=== PATIENT | female | born 1975 | race Caucasian/White ===

== ENCOUNTER → 2021-11-13 08:38 | Outpatient (CLI) | payer OTHER, SELFPAY ==
[2021-11-13 18:21] LABS: Basophils # 0.2 K/mm3 (0-0.2); Basophils % 2.6 % (0.1-2.0); Eosinophils # 0.2 K/mm3 (0.0-0.4); Eosinophils % 2.8 % (0.1-12.0); Hematocrit 49.3 % (37.0-47.0); Hemoglobin 15.9 g/dL (12.2-16.2); Lymphocytes # 2.4 K/mm3 (0.7-4.5); Lymphocytes % 31.3 % (10-50); Mean Corpuscular HGB Conc 32.3 g/dL (31.8-35.4); Mean Corpuscular Hemoglobin 31.5 pg (27.0-31.2); Mean Corpuscular Volume 97.5 fl (81-99); Mean Platelet Volume 10.8 fl (7.4-10.4); Monocytes # 0.4 K/mm3 (0.1-1.0); Monocytes % 4.5 % (1.7-9.3); Neutrophils # 4.5 K/mm3 (1.8-7.8); Neutrophils % 58.9 % (37.0-80.0); Platelet Count 353 K/mm3 (142-424); Red Blood Count 5.05 M/mm3 (4.20-5.40); Red Cell Distribution Width 13.8 % (11.5-17.5); White Blood Count 7.7 K/mm3 (4.8-10.8)
[2021-11-13 18:29] LABS: Alanine Aminotransferase 36 U/L (12-78); Albumin Level 4.6 g/dl (3.5-5.0); Albumin/Globulin Ratio 1.6 (1.1-1.8); Alkaline Phosphatase 94 U/L (38-126); Anion Gap 13.2 mEq/L (5-15); Aspartate Amino Transferase 31 U/L (14-36); Bilirubin,Total 0.7 mg/dl (0.2-1.3); Blood Urea Nitrogen 14 mg/dl (7-17); Calcium 10.1 mg/dl (8.4-10.2); Carbon Dioxide 23 mmol/L (22.0-30.0); Chloride 107 mmol/L (98-107); Cholesterol 185 mg/dl (140-200); Estimated Glomerular Filt Rate 133 ml/min (>60); GFR (African American) 161 ML/MIN (>60); Globulin 2.9 g/dL (1.3-3.2); Glucose 108 mg/dl (74-100); HDL Cholesterol 61 mg/dl (40-60); Potassium 4.2 mmoL/L (3.5-5.1); Sodium 139 mmol/L (136-145); Total Protein,Serum 7.5 g/dl (6.3-8.2); Triglycerides 100 mg/dl (30-150); VLDL Cholesterol 20 mg/dL (0-40)
[2021-11-13 18:40] LABS: Direct LDL Cholesterol 84.92 mg/dL (100-129)
[2021-11-13 18:46] LABS: 25-OH Vitamin D, Total 29.6 ng/mL (30-100)
[2021-11-13 19:00] LABS: Thyroid Stimulating Hormone 1.66 uIU/mL (0.465-4.68)
== END ==
PROVIDERS: Visit Provider Nurse Practitioner Family
DX: R10.9 Unspecified abdominal pain (principal); R53.83 Other fatigue; E55.9 Vitamin D deficiency, unspecified
CPT/HCPCS: 80053; 80061; 82306; 84436; 84443; 85025

== ENCOUNTER → 2021-11-17 06:47 | Outpatient (CLI) | payer OTHER, SELFPAY ==
--- NOTE | 2021-11-17 06:48 | CT_ITS ---
FINAL REPORT CLINICAL HISTORY: Lipoma, right side abd pain FINDINGS: CT ABDOMEN & PELVIS W/O CONTRAST Axial CT images of the abdomen and pelvis were obtained without intravenous contrast. Coronal reformatted images were also obtained.This study was performed with techniques to keep radiation doses as low as reasonably achievable (ALARA). Individualized dose reduction techniques using automated exposure control or adjustment of mA and/or kV according to the patient's size were employed. Abdomen: The lung bases are clear. There is no evidence of renal stone or hydronephrosis. The gallbladder is present. The liver, spleen and pancreas have an unremarkable, unenhanced appearance. No inflammatory process is identified. There is an 11 mm nodule in the right abdomen subcutaneous tissue which is nonspecific. Pelvis: Images of the pelvis reveal no evidence of ureteral dilation or ureteral stone. The appendix is unremarkable. No mass or abnormal fluid collection is identified. The uterus has a lobular contour which is consistent with fibroids. IMPRESSION: No renal or ureteral stone, or hydronephrosis. 11 mm nodule in the right abdomen subcutaneous tissue, nonspecific. Fibroid uterus. Reviewed, Interpreted and Dictated by Terry Fischer III, MD Transcribed by Ksenia Hall Authenticated by Terry Fischer III, MD on 11/17/2021 08:57:54 AM [facility]
== END ==
LOC: RAD 06:48
PROVIDERS: PCP Emergency Medicine; Visit Provider Nurse Practitioner Family
DX: R10.9 Unspecified abdominal pain (principal)
CPT/HCPCS: 74176

== ENCOUNTER → 2021-12-12 16:25 | Outpatient (CLI) | payer OTHER, SELFPAY ==
[2021-12-12 17:03] LABS: MANUAL DIFFERENTIAL MANUAL DIFFERENTIAL (MANUAL DIFF)
[2021-12-12 17:20] LABS: Chloride 106 mmol/L (98-107); Potassium 3.9 mmoL/L (3.5-5.1); Sodium 135 mmol/L (136-145)
[2021-12-12 17:23] LABS: Anion Gap 7.9 mEq/L (5-15); Blood Urea Nitrogen 12 mg/dl (7-17); Calcium 9.2 mg/dl (8.4-10.2); Carbon Dioxide 25 mmol/L (22.0-30.0); Estimated Glomerular Filt Rate 108 ml/min (>60); GFR (African American) 130 ML/MIN (>60); Glucose 102 mg/dl (74-100)
[2021-12-12 17:29] LABS: Basophils # 0.2 K/mm3 (0-0.2); Basophils % 1.8 % (0.1-2.0); Eosinophils # 0.3 K/mm3 (0.0-0.4); Eosinophils % 2.1 % (0.1-12.0); Hematocrit 42.5 % (37.0-47.0); Hemoglobin 14.3 g/dL (12.2-16.2); Lymphocytes % 22.1 % (10-50); Mean Corpuscular HGB Conc 33.6 g/dL (31.8-35.4); Mean Corpuscular Hemoglobin 31.6 pg (27.0-31.2); Mean Platelet Volume 9.3 fl (7.4-10.4); Monocytes # 0.7 K/mm3 (0.1-1.0); Monocytes % 5.3 % (1.7-9.3); Neutrophils # 9.5 K/mm3 (1.8-7.8); Neutrophils % 68.8 % (37.0-80.0); Platelet Count 288 K/mm3 (142-424); Red Blood Count 4.52 M/mm3 (4.20-5.40); Red Cell Distribution Width 14.2 % (11.5-17.5); White Blood Count 13.8 K/mm3 (4.8-10.8)
[2021-12-12 18:22] LABS: Eosinophils % 1 % (0-3); Lymphocytes % 25 % (10-50); Monocytes % 3 % (2-9); Neutrophils % 70 % (42-76); Platelet Estimate Normal; RBC Morphology Normal; Total Cells Counted 100
== END ==
PROVIDERS: PCP Emergency Medicine; Visit Provider Surgery
DX: Z01.812 Encounter for preprocedural laboratory examination (principal); Z11.52 Encounter for screening for COVID-19; R10.9 Unspecified abdominal pain; D17.9 Benign lipomatous neoplasm, unspecified
CPT/HCPCS: 36415; 80048; 85007; 85014; 85018; 85048; 85049; C9803; U0003; U0005

== ENCOUNTER 2021-12-14 06:06 | Day surgery (SDC) | payer OTHER, SELFPAY ==
[2021-12-10 14:49] VITALS: BMI 32.5
[2021-12-14] VITALS (10 sets, daily range): BP systolic 112–145; BP diastolic 66–95; PULSE 58–74; RESP 12–18; TEMP 36.3–38; O2SAT 94–98
--- NOTE | 2021-12-14 06:50 | P.PN_ITS ---
[facility] Anesthesia Checklist - Structural Data Admitted From: Home Planned Operative Procedure/s: abd neoplasm Consent for Planned Operative Procedure(s) Verified: Yes - Additional verifications Anesthesia Reactions: No Hx Blood Transfusions: No Blood Transfusion Reaction: No - Airway Assessment C-Spine Mobility Assessed: Yes TMJ Mobility Assessed: Yes Dentition: Good Dentition - Neurological Assessment Level of Consciousness: Awake, Alert, Appropriate - Anesthesia Plan Anesthesia Risk discussed: Yes Anesthesia Plan: Verified ASA Class: II Anesthesia Type: General [facility] History I have reviewed the patient's past medical history: Yes Medical History: Reports:: Gastroesophageal Reflux Disease(GERD) Denies:: Cancer, Diabetes Mellitus Type 1, Diabetes Mellitus Type 2, Internal Pacemaker, MRSA, Seizures *Have you ever received a pneumonia vaccine?: No *Have you received a flu vaccine this season?: No Other Medical History: Denies: Blood Transfusion Reaction Anesthesia experience/problems:: none Laterality Cases: Right: Breast Biopsy Other Surgeries: Yes: Hernia Repair. No: Pacemaker Amputation: No Fractures: No - *Social History Last grade of school completed: High school graduate Smoking Status: Current every day smoker Tobacco Type: cigarettes # Packs/Day (cigarettes): 1 Alcohol Intake: current Alcohol Intake Frequency:: 0-2 drinks per day Substance Use Type: marijuana *Occupational Status:: employed Housing: house Household Members: family *Travel in the last 8 weeks: None Family Hx:: Hypertension, Heart Attack, Stroke, Cancer
[2021-12-14 06:53] LABS: Urine Pregnancy, HCG Qual. Negative (Negative)
--- NOTE | 2021-12-14 08:18 | HMH.OPNOTE ---
Date of procedure: 12/14/21 Pre-op Diagnosis:: Multiple abdominal wall lipomas Post-op Diagnosis:: Same Procedure performed:: Excision of multiple abdominal wall lipomas (excisional length 5.0 cm, 4.0 cm, 3.5 cm) with intermediate complexity closure Surgeon:: Terry Valdivia MD SUPERVISOR COLOR PASTE MIXING:: Gonzalo Aj Anesthesia: LMA Estimated blood loss (mL): 5 Clinical Note:: Patient is a 46-year-old female from [facility] referred by Dr. Schroeder for symptomatic lipomas on her right abdomen. SHe states she has multiple lipomas all over her body. She did have lipomas removed in [place] several years ago. Recently she has had some increasing pain in the right lower abdomen and has several palpable lesions consistent with lipomas. She underwent CT scan on 11/17/2021. This reveals 11 mm subcutaneous nodule in the right abdomen . Patient wishes to have the lipomas causing her symptomatology removed. She describes a lot of pain . She wonders about limited incisions inquiring about the possibility of removing several lipomas through a single incision. She states that these have been present for a long time . Operative findings:: Consistent with subcutaneous lipomas Operative note:: Patient was taken to the operating room. She was given preoperative intravenous antibiotics. In the operating room she was placed in a supine position. General anesthesia was induced via LMA. Abdomen was prepped and draped in the standard surgical fashion. Lesions were marked for location in the preoperative area with the patient awake. These were palpable. Incision was made overlying the lipoma was. Dissection was carried down through subcutaneous tissues. Combination of blunt dissection and Metzenbaum dissection with some use of electrocautery lipomas were excised. Upper lipoma incision was approximately 3.5 cm. Mid lipoma incision was approximately 4.0 cm. 2 lipomas were excised from lower incision which was approximately 5.0 cm. Incisions were irrigated. Hemostasis was achieved with electrocautery. Local anesthetic was infiltrated. Deep dermal tissues were reapproximated with interrupted 3-0 Vicryl. Skin was closed with 4-0 Monocryl in a subcuticular fashion. Dermabond and Steri-Strips were applied. Condition: stable Disposition: PACU Specimens:: Upper, mid, and lower (x2) lipoma Complications:: None immediately apparent
--- NOTE | 2021-12-14 08:21 | HMH.ANESI ---
[facility] Anesthesia Record Part I Intake, IV Amount: 1,000 Estimated blood loss (mL): 0 Urine output (mL): 0 Blood Pressure: 138/88 SaO2: 96 Pulse Rate: 70 Respiratory Rate: 12 Temperature: 98.6 F Patient is:: Awake, Stable Stable to PACU at:: 08:20
--- NOTE | 2021-12-14 19:02 | HMH.ANESII ---
[facility] Anesthesia Record Part II Discharge Time: 08:40 Destination: Surgical Day Care (OP Surgery) PACU nurse assessment reviewed?: Yes Patient Condition:: Good Anesthesia Complications:: None Swallowing reflex intact?: Yes Cyanosis?: No Blood Pressure: 125/82 Pulse Rate: 60 Temperature: 97.5 F Mental Status: Alert & Oriented Pain level:: 4 Nausea and/or vomitting:: None Intake, IV Amount: 0
== END 2021-12-14 09:15 | disposition home or self-care (01) ==
LOC: OR 06:07
PROVIDERS: PCP Emergency Medicine; Visit Provider Surgery
PROC: (CPT 11406; principal; 2021-12-14 07:30)
DX: D17.79 Benign lipomatous neoplasm of other sites (principal); K21.9 Gastro-esophageal reflux disease without esophagitis; Z72.0 Tobacco use; F12.90 Cannabis use, unspecified, uncomplicated; Z82.49 Family history of ischemic heart disease and other diseases of the circulatory system; Z82.3 Family history of stroke; Z80.9 Family history of malignant neoplasm, unspecified
CPT/HCPCS: 11406; 12031; 11404; 81025; 96374; J2405

== ENCOUNTER → 2023-01-07 23:15 | Outpatient (CLI) | payer OTHER, SELFPAY ==
[2023-01-07 17:59] LABS: Basophils # 0.1 K/mm3 (0-0.2); Basophils % 0.7 % (0.1-2.0); Eosinophils # 0.3 K/mm3 (0.0-0.4); Eosinophils % 2.5 % (0.1-12.0); Hematocrit 46.3 % (37.0-47.0); Lymphocytes # 3.4 K/mm3 (0.7-4.5); Lymphocytes % 31.7 % (10-50); Mean Corpuscular HGB Conc 32.5 g/dL (31.8-35.4); Mean Corpuscular Hemoglobin 31.5 pg (27.0-31.2); Mean Corpuscular Volume 97.1 fl (81-99); Monocytes # 0.5 K/mm3 (0.1-1.0); Monocytes % 4.8 % (1.7-9.3); Neutrophils # 6.5 K/mm3 (1.8-7.8); Neutrophils % 60.3 % (37.0-80.0); Platelet Count 350 K/mm3 (142-424); Red Blood Count 4.77 M/mm3 (4.20-5.40); Red Cell Distribution Width 13.5 % (11.5-17.5); White Blood Count 10.7 K/mm3 (4.8-10.8)
[2023-01-07 18:07] LABS: Alanine Aminotransferase 32 U/L (12-78); Albumin Level 4.4 g/dl (3.5-5.0); Albumin/Globulin Ratio 1.6 (1.1-1.8); Alkaline Phosphatase 80 U/L (38-126); Anion Gap 16.2 mEq/L (5-15); Aspartate Amino Transferase 33 U/L (14-36); Bilirubin,Total 0.5 mg/dl (0.2-1.3); Blood Urea Nitrogen 16 mg/dl (7-17); Calcium 9.7 mg/dl (8.4-10.2); Carbon Dioxide 25 mmol/L (22.0-30.0); Chloride 102 mmol/L (98-107); Cholesterol 182 mg/dl (140-200); Estimated Glomerular Filt Rate 90 ml/min (>60); GFR (African American) 109 ML/MIN (>60); Globulin 2.7 g/dL (1.3-3.2); Glucose 147 mg/dl (74-100); HDL Cholesterol 60 mg/dl (40-60); Potassium 4.2 mmoL/L (3.5-5.1); Sodium 139 mmol/L (136-145); Total Protein,Serum 7.1 g/dl (6.3-8.2); Triglycerides 197 mg/dl (30-150); VLDL Cholesterol 39 mg/dL (0-40)
[2023-01-07 18:25] LABS: 25-OH Vitamin D, Total 34.1 ng/mL (30-100)
[2023-01-07 18:29] LABS: Direct LDL Cholesterol 81.28 mg/dL (100-129)
[2023-01-07 18:38] LABS: Thyroid Stimulating Hormone 1.19 uIU/mL (0.465-4.68)
== END ==
PROVIDERS: PCP Nurse Practitioner Family; Visit Provider Nurse Practitioner Family
DX: Z00.00 Encounter for general adult medical examination without abnormal findings (principal); R60.0 Localized edema; E66.9 Obesity, unspecified; Z68.36 Body mass index [BMI] 36.0-36.9, adult
CPT/HCPCS: 80053; 80061; 82306; 84443; 85025

== ENCOUNTER → 2023-01-18 08:28 | Outpatient (CLI) | payer OTHER, SELFPAY ==
--- NOTE | 2023-01-18 08:32 | XR_ITS ---
FINAL REPORT CLINICAL HISTORY: Foot pain FINDINGS: 3 views of the left foot were obtained. There is no acute fracture or dislocation. The joint spaces are intact. The soft tissues are unremarkable. IMPRESSION: No acute process. Reviewed, Interpreted and Dictated by Chong Lawrence MD Transcribed by Kendell Shell Authenticated and [facility]
--- NOTE | 2023-01-18 08:32 | XR_ITS ---
FINAL REPORT CLINICAL HISTORY: Foot pain FINDINGS: 3 views of the right foot were obtained. There is no acute fracture or dislocation. The joint spaces are intact. The soft tissues are unremarkable. IMPRESSION: No acute process. Reviewed, Interpreted and Dictated by Chong Lawrence MD Transcribed by Kendell Shell Authenticated and [facility]
[2023-01-18 10:26] LABS: Hemoglobin A1C 5.9 % (4.0-6.0)
== END ==
LOC: LAB 08:29
PROVIDERS: PCP Emergency Medicine; Visit Provider Nurse Practitioner Family
DX: M79.671 Pain in right foot (principal); M79.672 Pain in left foot; Z13.1 Encounter for screening for diabetes mellitus; E66.9 Obesity, unspecified; Z68.36 Body mass index [BMI] 36.0-36.9, adult
CPT/HCPCS: 36415; 73630; 83036

== ENCOUNTER → 2023-07-08 13:24 | Outpatient (CLI) | payer OTHER, SELFPAY ==
--- NOTE | 2023-07-08 13:25 | MM_ITS ---
PROCEDURE INFORMATION: Exam: Bilateral Screening 3D Mammography Exam date and time: 07/08/2023 1:17 PM Age: 47 years old Clinical indication: Screening mammogram TECHNIQUE: Imaging protocol: Bilateral Screening tomosynthesis and 2D mammography including computer-aided detection (CAD) when performed. COMPARISON: MG HERNANDEZ BREAST SURGICL SPECMN 06/06/2017 9:45 AM FINDINGS: MAMMOGRAPHY: Breast composition: There are scattered areas of fibroglandular density. Mass: None. Architectural distortion: No new or suspicious architectural distortion. Calcifications: Calcifications within the upper outer bilateral middle 1/3 should be assessed with spot MAGNIFICATION views in CC/ML projection for morphologic characterization. Asymmetric density: No new or suspicious asymmetric density is present Skin thickening: None. Axillary adenopathy: None. IMPRESSION: Calcifications within the upper outer bilateral middle 1/3 should be assessed with spot MAGNIFICATION views in CC/ML projection for morphologic characterization. ASSESSMENT: BI-RADS category 0: Incomplete-need additional imaging evaluation
== END ==
PROVIDERS: PCP Emergency Medicine; Visit Provider Emergency Medicine
DX: Z12.31 Encounter for screening mammogram for malignant neoplasm of breast (principal)
CPT/HCPCS: 77063; 77067

== ENCOUNTER 2023-08-11 13:58 | Outpatient (CLI) | payer OTHER, SELFPAY ==
--- NOTE | 2023-08-11 13:59 | MM_ITS ---
PROCEDURE INFORMATION: Exam: MG Bilateral Diagnostic Breast Tomosynthesis Exam date and time: 08/11/2023 1:50 PM Age: 47 years old Clinical indication: Patient recalled on the basis of a screening mammogram for further evaluation; Bilateral breasts; calcifications TECHNIQUE: Imaging protocol: Bilateral Diagnostic tomosynthesis and 2D mammography including computer-aided detection (CAD) when performed. Unilateral or bilateral exam. COMPARISON: 1. MG MM DIG SCREENING MAMM BI W/CAD 07/08/2023 1:17 PM 2. MG MA BREAST SURGICL SPECMN 06/06/2017 9:45 AM FINDINGS: MAMMOGRAPHY: Digital diagnostic magnification views of both upper outer quadrants demonstrate fairly widespread uniformly round and oval calcifications without significant pleomorphism. The calcifications are probably benign in etiology, reflecting fibrocystic change. IMPRESSION: Probably benign calcifications fairly widespread in both upper outer quadrants. A six-month follow-up diagnostic bilateral mammogram with magnification views of the upper outer quadrant is recommended to ensure stability over time ASSESSMENT: BI-RADS Category 3: Probably benign
== END 2023-08-11 23:59 ==
LOC: RAD 13:59
PROVIDERS: PCP Emergency Medicine; Visit Provider Nurse Practitioner Family
DX: R92.8 Other abnormal and inconclusive findings on diagnostic imaging of breast (principal)
CPT/HCPCS: 77062; 77066; G0279

== ENCOUNTER 2023-09-08 08:16 | Outpatient (CLI) | payer OTHER, SELFPAY ==
--- NOTE | 2023-09-08 | MM_ITS ---
FINAL REPORT CLINICAL HISTORY: rt breast specimen, Right breast biopsy FINDINGS: Specimen radiograph was performed of tissue samples of the right breast stereotactic biopsy. Multiple tissue fragments were seen containing calcifications of interest confirming adequate sampling. Authenticated and [facility]
--- NOTE | 2023-09-08 | MM_ITS ---
FINAL REPORT CLINICAL HISTORY: .clip placement FINDINGS: RIGHT BREAST MAMMOGRAM TECHNIQUE: Standard 2D views DENSITY: There are scattered areas of fibroglandular density FINDINGS: Biopsy marker clip is noted in good position. There is normal postbiopsy change. IMPRESSION: Images documenting reduction of calcifications of interest with biopsy marker clip in good position RECOMMENDED FOLLOW-UP: 6-month mammographic follow-up as part of normal post benign biopsy surveillance Histopathology results revealed benign finding is concordant with mammographic abnormality. Authenticated and [facility]
--- NOTE | 2023-09-08 08:16 | MM_ITS ---
FINAL REPORT CLINICAL HISTORY: .right breast calcs FINDINGS: PROCEDURE: VACUUM ASSISTED STEREOTACTIC BREAST NEEDLE CORE BIOPSY RIGHT BREAST INDICATION: Abnormal calcifications TECHNIQUE/FINDINGS: Informed consent was obtained. Time-out was observed to verify patient's identity and correct location of the breast abnormality. Superior to inferior approach was used. Patient was placed on the prone procedure table. The lesion was targeted for stereotactic approach the breast was cleansed with Betadine and local anesthesia was obtained with 1% Lidocaine, with and without Epinephrine. A small skin incision was made with a scalpel and an 9 gauge Mammotome probe was then advanced into the breast using stereotactic guidance. Images were obtained to confirm accurate positioning of the probe. Multiple vacuum-assisted core samples were then obtained in a radial fashion. A specimen radiograph was obtained. A tissue marker clip was placed at the biopsy site for future monitoring. The needle was withdrawn and pressure was applied until all appreciable bleeding subsided. The incision was closed with Steri-strips and a dressing/ice pack was applied. Routine mammographic images were obtained in MLO and CC projections to document position of the clip relative to the biopsy site. Specimen radiograph was obtained documenting calcifications of interest within the tissue specimen samples. Biopsy specimens were forwarded to the Pathology Department. Post-biopsy instructions were reviewed with the patient and a written copy was given to the patient as well. IMPRESSION: 1. Technically successful stereotactic biopsy right breast calcifications 2. Biopsy marker clip deployed 3. Calcifications confirmed within specimen radiograph 4. Post biopsy mammogram obtained documenting clip position Histopathology results reveal benign findings concordant with mammographic findings. 6-month mammographic follow-up is recommended as part of normal benign biopsy surveillance. Authenticated and [facility]
[2023-09-08] MEDS: ALPRAZolam 0.5MG TABLET 0.5 MG PO (09:15)
[2023-09-08] MEDS: RAD-SODIUM CHLORIDE 0.9% 250ML BAG 100 ML IV (09:30)
[2023-09-08] MEDS: LIDOCAINE 1% W/EPI 1:100,000 20ML VIAL IJ (09:30)
== END 2023-09-08 23:59 ==
LOC: RAD 08:16
PROVIDERS: PCP Emergency Medicine; Visit Provider Nurse Practitioner Family
DX: R92.8 Other abnormal and inconclusive findings on diagnostic imaging of breast (principal)
CPT/HCPCS: 19081; 76098; 77066

== ENCOUNTER 2024-02-15 12:24 | Outpatient (CLI) | payer OTHER, SELFPAY ==
[2024-02-15 18:38] LABS: Basophils # 0.1 K/mm3 (0-0.2); Basophils % 1.3 % (0.1-2.0); Eosinophils # 0.3 K/mm3 (0.0-0.4); Eosinophils % 3.1 % (0.1-12.0); Hematocrit 48.3 % (37.0-47.0); Hemoglobin 15.9 g/dL (12.2-16.2); Lymphocytes % 35.7 % (10-50); Mean Platelet Volume 11.1 fl (7.4-10.4); Monocytes # 0.5 K/mm3 (0.1-1.0); Monocytes % 5.6 % (1.7-9.3); Neutrophils # 4.6 K/mm3 (1.8-7.8); Neutrophils % 54.4 % (37.0-80.0); Platelet Count 360 K/mm3 (142-424); Red Blood Count 4.83 M/mm3 (4.20-5.40); Red Cell Distribution Width 13.6 % (11.5-17.5); White Blood Count 8.5 K/mm3 (4.8-10.8)
[2024-02-15 19:23] LABS: Alanine Aminotransferase 20 U/L (12-78); Albumin Level 4.3 g/dl (3.5-5.0); Albumin/Globulin Ratio 1.6 (1.1-1.8); Alkaline Phosphatase 76 U/L (38-126); Anion Gap 10.7 mEq/L (5-15); Aspartate Amino Transferase 23 U/L (14-36); Bilirubin,Total 0.6 mg/dl (0.2-1.3); Blood Urea Nitrogen 16 mg/dl (7-17); Carbon Dioxide 27 mmol/L (22.0-30.0); Chloride 106 mmol/L (98-107); Chol/HDL Ratio 2.9 (1-3.5); Cholesterol 201 mg/dl (140-200); Estimated Glomerular Filt Rate 89 ml/min (>60); GFR (African American) 108 ML/MIN (>60); Globulin 2.7 g/dL (1.3-3.2); Glucose 98 mg/dl (74-100); HDL Cholesterol 70 mg/dl (40-60); Potassium 4.7 mmoL/L (3.5-5.1); Sodium 139 mmol/L (136-145); Triglycerides 102 mg/dl (30-150); VLDL Cholesterol 20 mg/dL (0-40)
[2024-02-15 19:34] LABS: Direct LDL Cholesterol 86.94 mg/dL (100-129)
[2024-02-15 19:38] LABS: 25-OH Vitamin D, Total 42.2 ng/mL (30-100)
[2024-02-15 19:54] LABS: Thyroid Stimulating Hormone 1.28 uIU/mL (0.465-4.68)
[2024-02-16 13:15] LABS: HIV (1&2) Antibody Rapid NON REACTIVE
[2024-02-17 08:49] LABS: HCV Ab Non Reactive (Non Reactive)
== END 2024-02-15 23:59 | disposition home or self-care (01) ==
LOC: LAB.DROPOF 02-16 12:24
PROVIDERS: PCP Nurse Practitioner Family; Visit Provider Nurse Practitioner Family
DX: Z00.00 Encounter for general adult medical examination without abnormal findings (principal); E66.9 Obesity, unspecified; Z68.31 Body mass index [BMI] 31.0-31.9, adult
CPT/HCPCS: 86803; 86703; 80050; 80053; 80061; 82306; 84443; 85025